=== PATIENT | female | born 1975 | race Caucasian/White ===

== ENCOUNTER 2022-08-10 15:05 | Outpatient (CLI) | payer OTHER, SELFPAY ==
--- NOTE | 2022-08-10 15:20 | CRLHL7_ITS ---
For Patients: As a result of the Century Cures Act, medical imaging exams and procedure reports are released immediately into your electronic medical record. You may view this report before your referring provider. If you have questions, please contact your health care provider. BILATERAL SCREENING MAMMOGRAM WITH COMPUTER-AIDED DETECTION TECHNIQUE: CC and MLO views were obtained. These mammographic images have been obtained using full-field digital technique. These mammographic images were interpreted with the benefit of computer-aided detection. COMPARISON FILM: 07/01/21, 06/28/20. FINDINGS: There are scattered areas of fibroglandular density IMPRESSION: There is no radiographic evidence for malignancy. ASSESSMENT: BI-RADS Category 1: Negative RECOMMENDATION: Routine screening mammogram in 1 year. A lay language report of this examination will be provided to the patient. Jacoby Nicole M.D. Diagnostic/Nuclear Medicine Radiologist [email or web address] Transcribed: 3:13 p.mRosales GENEVA/Dictated by: Jacoby Nicole MD @ 08/11/2022 8:13:00 AM (Electronically Signed)
== END 2022-08-10 15:06 | disposition home or self-care (01) ==
LOC: MAMMO 15:06
PROVIDERS: PCP Physician Assistant Medical; Visit Provider Physician Assistant Medical
DX: Z12.31 Encounter for screening mammogram for malignant neoplasm of breast (principal)
CPT/HCPCS: 77063; 77067

== ENCOUNTER 2022-08-26 13:11 | Outpatient (CLI) | payer OTHER, SELFPAY ==
[2022-08-26 21:42] LABS: Albumin* 4.6 g/dL (3.3-5.0); Chloride* 105 mmol/L (96-114); Potassium* 4.3 mmol/L (3.6-5.1); Sodium* 141 mmol/L (135-149)
[2022-08-26 21:45] LABS: Bilirubin Total* 0.5 mg/dL (0.1-1.5); Blood Urea Nitrogen* 14 mg/dL (5-24); Carbon Dioxide* 28 mmol/L (20-32); Cholesterol* 222 mg/dL (90-199); Creatinine* 0.8 mg/dL (0.5-1.5); Estimated Glomerular Filt Rate 93 ml/min; Total Protein* 7.6 g/dL (6.0-8.3)
[2022-08-26 21:46] LABS: Alanine Aminotransferase* 31 U/L (4-35); Alkaline Phosphatase* 87 U/L (40-150); Aspartate Amino Transferase* 39 U/L (12-35); Calcium* 9.7 mg/dL (8.4-10.6); Glucose* 82 mg/dL (60-115); HDL Cholesterol* 57 mg/dL (>=50); LDL Cholesterol Calculated 141 mg/dL (<100); Triglycerides* 122 mg/dL (40-149)
[2022-08-26 21:58] LABS: Vitamin D 25 Hydroxy* 54 ng/mL (30-80)
[2022-08-26 22:16] LABS: Ferritin* 10.6 ng/mL (6.24-137.0)
[2022-08-26 22:31] LABS: Vitamin B12* 797 pg/mL (243-894)
== END 2022-08-26 13:12 | disposition home or self-care (01) ==
PROVIDERS: PCP Physician Assistant Medical; Visit Provider Physician Assistant Medical
DX: Z00.00 Encounter for general adult medical examination without abnormal findings (principal); E78.5 Hyperlipidemia, unspecified; R73.03 Prediabetes; E66.9 Obesity, unspecified; E03.9 Hypothyroidism, unspecified; R03.0 Elevated blood-pressure reading, without diagnosis of hypertension; F41.8 Other specified anxiety disorders; E88.81 Metabolic syndrome and other insulin resistance
CPT/HCPCS: 80053; 80061; 82306; 82607; 82728; 84443

== ENCOUNTER 2022-11-09 11:24 | Outpatient (CLI) | payer OTHER, SELFPAY ==
[2022-11-09 16:49] LABS: Albumin* 4.2 g/dL (3.3-5.0)
[2022-11-09 16:52] LABS: Alanine Aminotransferase* 41 U/L (4-35); Alkaline Phosphatase* 73 U/L (40-150); Aspartate Amino Transferase* 33 U/L (12-35); Bilirubin Direct* 0.2 mg/dL (0.0-0.5); Bilirubin Total* 0.5 mg/dL (0.1-1.5); Total Protein* 7.3 g/dL (6.0-8.3)
== END 2022-11-09 11:25 | disposition home or self-care (01) ==
PROVIDERS: PCP Physician Assistant Medical; Visit Provider Physician Assistant Medical
DX: R73.03 Prediabetes (principal); R03.0 Elevated blood-pressure reading, without diagnosis of hypertension
CPT/HCPCS: 80076

== ENCOUNTER 2023-05-17 08:58 | Outpatient (CLI) | payer BC, SELFPAY ==
--- NOTE | 2023-05-17 09:15 | CRLHL7_ITS ---
For Patients: As a result of the Century Cures Act, medical imaging exams and procedure reports are released immediately into your electronic medical record. You may view this report before your referring provider. If you have questions, please contact your health care provider. INDICATION: Lumbar stenosis. Neurogenic claudication. COMPARISON: None. TECHNIQUE: Sagittal T1, T2, and STIR sequences. Axial T1 and T2 weighted sequences. FINDINGS: Stable grade 2 anterolisthesis of L5 on S1 measuring 9 mm. Otherwise, normal alignment. No fractures. No vertebral body loss of height. No ligamentous injury. No suspicious osseous lesions. Normal conus terminates at L1. Postoperative changes of diskectomy interbody fusion L5-S1. Posterior fusion hardware. T12-L1 L1-2 L2-3: No spinal canal or neural foraminal narrowing. L3-4: Mild annular bulge. No narrowing of the spinal canal. No neural foraminal narrowing. L4-5: Progressive disc degeneration and posterior disc bulge. No narrowing of the spinal canal. No neural foraminal narrowing. L5-S1: Stable postoperative changes. No narrowing of spinal canal. No impingement of the traversing S1 nerve roots. Oblique orientation of bilateral foramina. Mild to moderate narrowing of the bilateral neural foramina. Artifact otherwise obscures image detail. Normal visualized SI joints. IMPRESSION: 1. Stable grade 2 anterolisthesis of L5 on S1. Otherwise, normal alignment. No fractures. 2. Postop changes L5-S1. Posterior fusion hardware. 3. At L4-5, progressive disc degeneration and posterior disc bulge. No spinal canal or neural foraminal narrowing. 4. At L5-S1, stable postop changes. No narrowing of the spinal canal. Mild to moderate narrowing of the bilateral neural foramina Dictated by Richi Jimenez MD @ 05/17/2023 1:15:05 PM (Electronically Signed)
== END 2023-05-17 08:59 | disposition home or self-care (01) ==
PROVIDERS: PCP Physician Assistant Medical; Visit Provider Physician Assistant Surgical
DX: M48.062 Spinal stenosis, lumbar region with neurogenic claudication (principal); M51.36 Other intervertebral disc degeneration, lumbar region; M51.26 Other intervertebral disc displacement, lumbar region
CPT/HCPCS: 72148

== ENCOUNTER 2023-11-10 13:33 | Outpatient (CLI) | payer BC, SELFPAY | END 2023-11-10 13:34 | disposition home or self-care (01) | LOC: NFLDREF 11-12 06:04 | PROVIDERS: PCP Physician Assistant Medical; Referring Provider Physician Assistant Medical; Visit Provider Physician Assistant Medical | DX: Z00.00 Encounter for general adult medical examination without abnormal findings (principal); E03.9 Hypothyroidism, unspecified; E66.01 Morbid (severe) obesity due to excess calories; E78.5 Hyperlipidemia, unspecified; R73.03 Prediabetes; R79.89 Other specified abnormal findings of blood chemistry; G25.81 Restless legs syndrome; F41.8 Other specified anxiety disorders | CPT/HCPCS: 80053; 80061; 84439; 84443 ==

== ENCOUNTER 2023-11-16 14:26 | Outpatient (CLI) | payer BC, SELFPAY ==
--- NOTE | 2023-11-16 14:40 | MM_ITS ---
INDICATION: SCREENING MAMMOGRAPHY. COMPARISON: 08/10/2022, 07/07/2021, 07/01/2021, 06/28/2020 TECHNIQUE: 3D BILATERAL DIGITAL TOMOSYNTHESIS MAMMOGRAM WITH COMPUTER ASSISTED DETECTION BREAST DENSITY HETEROGENEOUSLY DENSE FINDINGS: NO SUSPICIOUS MASSES ARE PRESENT BILATERALLY. NO ARCHITECTURAL DISTORTION. NO ADENOPATHY OR SUSPICIOUS CALCIFICATIONS. IMPRESSION: NO EVIDENCE OF MALIGNANCY. RECOMMENDATIONS: ANNUAL BILATERAL SCREENING MAMMOGRAPHY. BI-RADS CATEGORY 2. BENIGN.
== END 2023-11-16 14:27 | disposition home or self-care (01) ==
LOC: MAMMO 14:26
PROVIDERS: PCP Physician Assistant Medical; Visit Provider Physician Assistant Medical
DX: Z12.31 Encounter for screening mammogram for malignant neoplasm of breast (principal); R92.2 Inconclusive mammogram
CPT/HCPCS: 77063; 77067

== ENCOUNTER 2024-04-19 11:29 | Outpatient (CLI) | payer BC, SELFPAY ==
--- NOTE | 2024-04-19 11:30 | CRLHL7_ITS ---
For Patients: As a result of the Cures Act, medical imaging exams and procedure reports are released immediately into your electronic medical record. You may view this report before your referring provider. If you have questions, please contact your health care provider. Indication: Spinal fusion Technique: Lumbar spine 2 view IMPRESSION: Posterior fusion L5-S1. Hardware intact. No fracture. Dictated by Tien Cortez MD @ 04/20/2024 8:55:12 AM (Electronically Signed)
== END 2024-04-19 11:30 | disposition home or self-care (01) ==
PROVIDERS: PCP Physician Assistant Medical; Visit Provider Specialist
DX: M48.062 Spinal stenosis, lumbar region with neurogenic claudication (principal)
CPT/HCPCS: 72100

== ENCOUNTER 2024-04-24 13:23 | Outpatient (CLI) | payer BC, SELFPAY | END 2024-04-24 13:24 | disposition home or self-care (01) | LOC: LKVREF 15:29 | PROVIDERS: PCP Physician Assistant Medical; Visit Provider Physician Assistant Medical | DX: R79.89 Other specified abnormal findings of blood chemistry (principal); E03.9 Hypothyroidism, unspecified; F41.8 Other specified anxiety disorders | CPT/HCPCS: 84439; 84443 ==

== ENCOUNTER 2024-07-17 17:15 | Outpatient (CLI) | payer BC, SELFPAY ==
--- NOTE | 2024-07-17 17:30 | CRLHL7_ITS ---
For Patients: As a result of the Century Cures Act, medical imaging exams and procedure reports are released immediately into your electronic medical record. You may view this report before your referring provider. If you have questions, please contact your health care provider. Indication: Low back and leg pain. Technique: Multiplanar, multisequence MRI of the lumbar spine was performed without intravenous contrast. Comparison: MRI lumbar spine 05/21/2020. Findings: There are 5 lumbar type vertebral segments identified. Postsurgical changes of posterior fusion at L5-S1 The vertebral body heights are maintained without evidence of fracture. There is no discrete T1 hypointense marrow infiltrating process. The conus medullaris terminates at L1, normal. Cauda equina appears unremarkable. T12-L1: No spinal canal or neural foraminal stenosis. L1-2: No spinal canal or neural foraminal stenosis. L2-3: No spinal canal or neural foraminal stenosis. L3-4: Trace degenerative retrolisthesis. No spinal canal or neural foraminal narrowing. Mild facet arthropathy. L4-5: Minimal disc bulge. No spinal canal narrowing. Mild neural foraminal narrowing. Mild facet arthropathy. L5-S1: Grade 1-2 anterolisthesis. No spinal canal narrowing. Mild right and moderate left neural foraminal narrowing. Stable. Mild sacroiliac joint osteoarthritis. Impression: 1. Postsurgical changes of posterior fusion at L5-S1. 2. Stable grade 1-2 anterolisthesis with mild right and moderate left neural foraminal narrowing at L5-S1. Dictated by Per Hamilton MD @ 07/18/2024 11:50:53 AM (Electronically Signed)
== END 2024-07-17 17:16 | disposition home or self-care (01) ==
LOC: MRI 17:15
PROVIDERS: PCP Physician Assistant Medical; Visit Provider Specialist
DX: M48.062 Spinal stenosis, lumbar region with neurogenic claudication (principal); M51.27 Other intervertebral disc displacement, lumbosacral region; M54.50 Low back pain, unspecified
CPT/HCPCS: 72148

== ENCOUNTER 2024-08-28 15:59 | Outpatient (CLI) | payer BC, SELFPAY | END 2024-08-28 16:00 | disposition home or self-care (01) | LOC: NFLDREF 08-30 12:31 | PROVIDERS: PCP Physician Assistant Medical; Referring Provider Physician Assistant Medical; Visit Provider Physician Assistant Medical | DX: E03.9 Hypothyroidism, unspecified (principal); Z01.818 Encounter for other preprocedural examination | CPT/HCPCS: 84439; 84443 ==

== ENCOUNTER 2025-03-28 13:31 | Outpatient (CLI) | payer OTHER, SELFPAY ==
[2025-03-28 22:58] LABS: Chlamydia DNA Amplified* NOT DETECTED (No Detected); GC DNA Amplified* NOT DETECTED (No Detected)
[2025-03-30 18:50] LABS: HPV Source Cervix; HPV, High Risk by TMA Not Detected
[2025-04-09 17:56] LABS: Pap Test Reviewed by Path Done
== END 2025-03-28 13:32 | disposition home or self-care (01) ==
PROVIDERS: PCP Physician Assistant Medical; Visit Provider Physician Assistant Medical
DX: Z00.00 Encounter for general adult medical examination without abnormal findings (principal); I10 Essential (primary) hypertension; E03.9 Hypothyroidism, unspecified; N92.6 Irregular menstruation, unspecified; E66.01 Morbid (severe) obesity due to excess calories; Z11.3 Encounter for screening for infections with a predominantly sexual mode of transmission; Z11.51 Encounter for screening for human papillomavirus (HPV); Z12.4 Encounter for screening for malignant neoplasm of cervix
CPT/HCPCS: 80053; 80061; 84439; 84443; 87491; 87591; 87624; 87625; 88141; 88142

== ENCOUNTER 2025-05-04 08:35 | Outpatient (CLI) | payer OTHER, SELFPAY | END 2025-05-04 08:36 | disposition home or self-care (01) | LOC: NFLDREF 05-05 20:28 | PROVIDERS: PCP Physician Assistant Medical; Referring Provider Physician Assistant Medical; Visit Provider Physician Assistant Medical | DX: R71.8 Other abnormality of red blood cells (principal); E03.9 Hypothyroidism, unspecified; R79.89 Other specified abnormal findings of blood chemistry; E88.810 Metabolic syndrome; E66.01 Morbid (severe) obesity due to excess calories; I10 Essential (primary) hypertension | CPT/HCPCS: 82607; 82746; 84425; 84439; 84443; 85045 ==

== ENCOUNTER 2025-05-14 13:52 | Outpatient (CLI) | payer OTHER, SELFPAY ==
--- NOTE | 2025-05-14 14:00 | CRLHL7_ITS ---
For Patients: As a result of the Century Cures Act, medical imaging exams and procedure reports are released immediately into your electronic medical record. You may view this report before your referring provider. If you have questions, please contact your health care provider. INDICATION: excessive and frequent menstruation COMPARISON: None. TECHNIQUE: 2D fishman-scale and color Doppler images were acquired of the pelvis using a transabdominal and transvaginal approach. Transvaginal imaging performed to better visualize the endometrial stripe and ovaries. FINDINGS: Sonographic images demonstrate a normal size and smooth outer contour of the uterus. Uterus measures 10.7 cm in length by 5.0 cm in AP diameter by 5.7 cm in transverse dimension. Small calcified intramural fibroid is present in the lower uterine segment which measures 8 x 5 x 5 millimeters. The endometrial lining measures 9 mm in composite thickness. Ovoid hyperechoic structure associated with the endometrium measures 10 x 4 x 6 millimeters. The right ovary measures 2.8 x 1.2 x 2.2 cm in size and the left ovary measures 2.1 x 1.7 x 2.2 cm. The ovaries demonstrate normal arterial and venous blood flow on color Doppler analysis. There are no suspicious fluid collections within the cul-de-sac. IMPRESSION: Endometrial polyp may be present which measures 1 cm. Endometrial thickness 9 millimeters. Dictated by Tien Cortez MD @ 05/14/2025 4:08:35 PM (Electronically Signed)
== END 2025-05-14 13:53 | disposition home or self-care (01) ==
LOC: US 13:53
PROVIDERS: PCP Physician Assistant Medical; Visit Provider Physician Assistant Medical
DX: N92.0 Excessive and frequent menstruation with regular cycle (principal); N84.0 Polyp of corpus uteri; R93.89 Abnormal findings on diagnostic imaging of other specified body structures
CPT/HCPCS: 76830; 76856

== ENCOUNTER 2025-07-11 14:02 | Outpatient (CLI) | payer OTHER, SELFPAY | END 2025-07-11 14:03 | disposition home or self-care (01) | LOC: LKVREF 14:03 | PROVIDERS: PCP Physician Assistant Medical; Visit Provider Physician Assistant Medical | DX: Z01.818 Encounter for other preprocedural examination (principal) | CPT/HCPCS: 84443 ==

== ENCOUNTER 2025-07-27 13:31 | Outpatient (CLI) | payer OTHER, SELFPAY ==
--- NOTE | 2025-07-27 13:40 | CRLHL7_ITS ---
For Patients: As a result of the Century Cures Act, medical imaging exams and procedure reports are released immediately into your electronic medical record. You may view this report before your referring provider. If you have questions, please contact your health care provider. INDICATION: BILATERAL SCREENING MAMMOGRAM, ASYMPTOMATIC 49 Y/O FEMALE COMPARISON: 11/16/2023, 08/10/2022, 07/07/2021 TECHNIQUE: Digital mammogram in CC and MLO projections including computer-aided detection (CAD) and tomosynthesis. BREAST COMPOSITION: There are scattered areas of fibroglandular density. FINDINGS: No suspicious findings. ASSESSMENT: BI-RADS 1 Negative RECOMMENDATION: Annual screening mammogram. A lay language report of this examination will be provided to the patient. Dictated by: Tien Cortez MD @ 07/30/2025 08:54:12 (Electronically Signed)
== END 2025-07-27 13:32 | disposition home or self-care (01) ==
LOC: MAMMO 13:32
PROVIDERS: PCP Physician Assistant Medical; Visit Provider Physician Assistant Medical
DX: Z12.31 Encounter for screening mammogram for malignant neoplasm of breast (principal)
CPT/HCPCS: 77063; 77067

== ENCOUNTER 2025-07-31 09:15 | Day surgery (SDC) | payer OTHER, SELFPAY ==
[2025-07-31 09:38] LABS: Ur HCG Qualitative* Negative (Negative)
[2025-07-31 09:54] VITALS: BMI 43.9
[2025-07-31 10:02] LABS: Hemoglobin* 13.4 gm/dL (12.0-16.0)
[2025-07-31] MEDS: SODIUM CHLORIDE 0.9 % (FLUSH) 10 ML SYRINGE IVF (10:05)
[2025-07-31] MEDS: LACTATED RINGERS 1000 ML 1,000 ML 100 ML IV (10:05)
[2025-07-31 10:07] VITALS: BP 138/88; PULSE 90; RESP 16; TEMP 36.2; O2SAT 96
--- NOTE | 2025-07-31 10:09 | W.PM.H&PU ---
History & Physical Update History & Physical Update H&P Reviewed and patient assessed: No changes noted H&P Updates: Ms. Rocha is seen in pre-op prior to planned hysteroscopy, possible polypectomy, D&C. No interval change to her health history or questions today. We again reviewed the risks, benefits and alternatives to the planned procedure. Written consent was re-signed. Affirmed her refusal of blood products given zoroastrianism objection. I also clarified that patient is not interested in insertion of a Mirena IUD today. Patient notes she started bleeding again today, explained that if this or heavy and precluded my ability to visualize the endometrial cavity we would instead convert to a sharp D&C. She expressed understanding and is in agreement. Post-procedure restrictions and expectations reviewed. Pre-op labs reviewed and are within normal limits, UPT negative. No perioperative antibiotics indicated.
[2025-07-31] MEDS: SILVER NITRATE APPLICATOR 1 EACH STICK..EA. TOPICAL (11:16)
[2025-07-31] MEDS: BUPIVACAINE 0.5% 30 ML INJECTION (11:16)
--- NOTE | 2025-07-31 11:38 | P.GYNPRC_ITS ---
Procedure Note Time Seen by Provider: 11:38 Date of procedure: 07/31/25 Will [facility] bill your pro fee for this procedure?: Yes Pre-op diagnosis: Abnormal uterine bleeding Suspected endometrial polyp Procedure: Hysteroscopy, polypectomy, dilation and curettage Anesthesia: MAC and local Complications: None Surgeon: Dominic Bowling MD Estimated blood loss (mL): 25 IV fluids (mL): 700 Urine Output (mL): 25 Pathology: specimen obtained, sent to pathology Condition: stable Disposition: same day Findings: Diffuse polypoid tissue in endometrial cavity Normal bilateral tubal ostia Procedure Description: Procedure in detail: Patient was taken to the operating room with IV running. She was positioned in dorsal lithotomy position with her legs fully supported in Yellofin stirrups. Monitored anesthesia care was administered. She was prepped and draped in the usual sterile fashion. Exam under anesthesia was performed for the above-noted findings. Straight catheterization was performed. Speculum was inserted. Moderate blood in the vaginal vault, evacuated with sponge stick. Cervix visualized and grasped along the anterior lip with a single-tooth tenaculum. Paracervical block was performed in the usual fashion, 0.5% bupivacaine totalling 20cc. Cervix was serially dilated to accommodate the TRUCLEAR hysteroscope. This was assembled with saline inflow and outflow in place. The line was flushed of bubbles. The hysteroscope was advanced through the cervix into the endometrial cavity for the above noted findings. Initially, it was challenging to visualize the cavity due to intrauterine blood products/clot. Hysteroscope pressure was increased to 100mmHg and scope was advanced to fundus, where bleeding was flushed out and visualization was optimized. The tissue morcellator was then inserted through the operating channel. Window lock was performed. Under direct visualization, resection of the polypoid tissue was first completed in its entirety. The endometrial cavity was then circumferentially curetted with the tissue morcellator, as I was working there was return of some bleeding making direct visualization suboptimal. The hysteroscope and morcellator were then removed from the uterus. Sharp curette was introduced to the endometrial cavity, where gently curettage in all 4 quadrants demonstrated satisfactory uterine cri. Specimens sent for pathologic evaluation as endometrial curettings. Tenaculum was removed from the anterior lip of cervix. Brisk bleeding was noted at the right tenaculum site, despite pressure and silver nitrate x3. A single stitch of 3-0 chromic as a figure of eight was applied to tenaculum site. Hemos tasis was noted. Patient tolerated procedure well. She was taken to recovery area in stable condition. Surgical debrief completed - EBL 25cc, IVF 700cc, fluid deficit 165cc, UOP 25cc. Pathologic is endometrial curettings.
--- NOTE | 2025-07-31 11:40 | SUR.OPER ---
Fluid Deficit 165
[2025-07-31 11:41] VITALS: BP 115/77; PULSE 70; RESP 16; TEMP 36.4; O2SAT 98
[2025-07-31 11:45] VITALS: BP 113/75; PULSE 66; RESP 16; O2SAT 95
--- NOTE | 2025-07-31 11:45 | P.ANES_ITS ---
Anesthesia Charges Start Date/Time Anesthesia Start Date: 07/31/25 Anesthesia Start Time: 10:53 Stop Date/Time Anesthesia Stop Date: 07/31/25 Anesthesia Stop Time: 11:44 Coding CPT Codes CPT Codes: ANESTH HYSTEROSCOPE/GRAPH - 63012 ([id number]) P3 - PATIENT W/SEVERE SYS DISEASE, QK - DOCUMENTATION COORDINATOR 2-4 CNCRNT ANES PROC, QX - INVOICE CHECKER SVC W/ MD MED DIRECTION
--- NOTE | 2025-07-31 11:45 | W.ANESCHARGE ---
Anesthesia Charges Start Date/Time Anesthesia Start Date: 07/31/25 Anesthesia Start Time: 10:53 Stop Date/Time Anesthesia Stop Date: 07/31/25 Anesthesia Stop Time: 11:44 Coding CPT Codes CPT Codes: ANESTH HYSTEROSCOPE/GRAPH - 60377 ([id number]) P3 - PATIENT W/SEVERE SYS DISEASE, QK - SHELL SORTER 2-4 CNCRNT ANES PROC, QX - MEDIA PRODUCTION OPERATOR SVC W/ MD MED DIRECTION
--- NOTE | 2025-07-31 11:47 | P.ANES_ITS ---
Anesthesia Charges Start Date/Time Anesthesia Start Date: 07/31/25 Anesthesia Start Time: 10:53 Stop Date/Time Anesthesia Stop Date: 07/31/25 Anesthesia Stop Time: 11:44 Coding CPT Codes CPT Codes: ANESTH HYSTEROSCOPE/GRAPH - 41895 ([id number]) QK - TURNAROUND PLANNER 2-4 CNCRNT ANES PROC, QX - RN BURN SVC W/ MD MED DIRECTION, P3 - PATIENT W/SEVERE SYS DISEASE
--- NOTE | 2025-07-31 11:47 | W.ANESCHARGE ---
Anesthesia Charges Start Date/Time Anesthesia Start Date: 07/31/25 Anesthesia Start Time: 10:53 Stop Date/Time Anesthesia Stop Date: 07/31/25 Anesthesia Stop Time: 11:44 Coding CPT Codes CPT Codes: ANESTH HYSTEROSCOPE/GRAPH - 46402 ([id number]) QK - MAKE UP EDITOR 2-4 CNCRNT ANES PROC, QX - PROJ ENGINEER SVC W/ MD MED DIRECTION, P3 - PATIENT W/SEVERE SYS DISEASE
[2025-07-31 12:00] VITALS: BP 100/62; PULSE 72; RESP 16; O2SAT 95
[2025-07-31 12:15] VITALS: BP 107/61; PULSE 65; RESP 16; O2SAT 96
[2025-07-31 12:45] VITALS: BP 108/70; PULSE 66; RESP 16; TEMP 36.4; O2SAT 98
--- NOTE | 2025-07-31 13:04 | SUR.PHASEII ---
Pt had small amount of bleeding when she stood up and got dressed. Encouraged pt to monitor bleeding and call if soaks a pad in an hour. Pt understanding.
== END 2025-07-31 13:05 | disposition home or self-care (01) ==
PROVIDERS: PCP Physician Assistant Medical; Visit Provider Obstetrics & Gynecology
PROC: 0UDB8ZZ Extraction of Endometrium, Via Natural or Artificial Opening Endoscopic (ICD-10-PCS; CPT 58558; principal; 2025-07-31 10:45)
DX: N93.8 Other specified abnormal uterine and vaginal bleeding (principal); N84.0 Polyp of corpus uteri
CPT/HCPCS: 58558; 00952; 36415; 81025; 85018; 86850; 86900; 86901; 88305; A9270; C1782; J0665; J1100; J1885; J2250; J2405; J2704; J3010; J3490; J7120